=== PATIENT | female | born 1950 | race Two or more races ===

== ENCOUNTER → 2016-10-20 | Outpatient (CLI) | payer OTHER ==
[2016-10-20 10:19] LABS: Basophils # (auto) 0 uL; Basophils % (auto) 0.5 % (0.0-2.0); CONDITION Y; Eosinophils # (auto) 0.1 uL; Eosinophils % (auto) 1.5 % (0.0-7.0); Hematocrit 42.3 % (36.0-46.0); Hemoglobin 14.1 g/dL (12.2-16.2); Lymphocytes # (auto) 1.4 uL; Lymphocytes % (auto) 17.6 % (10.0-50.0); Mean Corpuscular Hemoglobin 29.2 pg (28.0-32.0); Mean Corpuscular Hgb Conc. 33.3 g/dL (32.0-36.0); Mean Corpuscular Volume 87.7 fL (80.0-100.0); Mean Platelet Volume 8.6 fL (7.4-10.4); Monocytes # (auto) 0.4 uL; Monocytes % (auto) 5.4 % (0.0-12.0); Platelet Count (auto) 302 10^3/uL (140-450); Red Cell Distribution Width 15.3 % (11.6-16.0); White Blood Cell 7.9 10^3/uL (4.4-10.8)
[2016-10-20 10:31] LABS: Urine Bilirubin Negative (Negative); Urine Blood Negative /uL (Negative); Urine Color Yellow (Yellow); Urine Glucose Normal (Normal); Urine Ketone Negative (Negative); Urine Mucus FEW (None Seen); Urine Nitrite Negative (Negative); Urine RBC <1 /hpf (0 - 4); Urine Squamous Epithelial Cell FEW /hpf (<5); Urine Urobilinogen Normal (Negative)
[2016-10-20 10:43] LABS: Albumin 3.4 g/dL (3.4-5.0); BUN/Creatinine Ratio 20.8; Bilirubin, Total 0.4 mg/dL (0.2-1.0); Calcium 9.4 mg/dL (8.5-10.1); Potassium 3.7 mmol/L (3.5-5.1); Total Protein 7.8 g/dL (6.4-8.2)
== END | disposition home or self-care (01) ==
LOC: LAB 09:53
PROVIDERS: ATTEND Internal Medicine
DX: I10 Essential (primary) hypertension (principal); E55.9 Vitamin D deficiency, unspecified; E78.2 Mixed hyperlipidemia
CPT/HCPCS: 36415; 80053; 80061; 81001; 82306; 83036; 84443; 85025

== ENCOUNTER → 2017-01-03 | Outpatient (CLI) | payer OTHER | END | disposition home or self-care (01) | LOC: LAB 13:19 | PROVIDERS: ATTEND Internal Medicine | DX: I65.22 Occlusion and stenosis of left carotid artery (principal) | CPT/HCPCS: 36415; 82565; 84520 ==

== ENCOUNTER → 2017-09-08 | Outpatient (CLI) | payer OTHER ==
[2017-09-08 12:55] LABS: Basophils # (auto) 0 uL; Basophils % (auto) 0.5 % (0.0-2.0); Eosinophils # (auto) 0.2 uL; Eosinophils % (auto) 2.4 % (0.0-7.0); Hematocrit 39.8 % (36.0-46.0); Hemoglobin 13.2 g/dL (12.2-16.2); Lymphocytes # (auto) 1.2 uL; Lymphocytes % (auto) 13.8 % (10.0-50.0); Mean Corpuscular Hemoglobin 28.8 pg (28.0-32.0); Mean Corpuscular Hgb Conc. 33.2 g/dL (32.0-36.0); Mean Corpuscular Volume 86.7 fL (80.0-100.0); Monocytes # (auto) 0.5 uL; Monocytes % (auto) 6.2 % (0.0-12.0); Neutrophils # (auto) 6.6 uL; Neutrophils % (auto) 77.1 % (37.0-80.0); Nucleated Red Blood Cells % 0.1 %; Platelet Count (auto) 268 10^3/uL (140-450); Red Blood Cells 4.59 10^6/uL (4.0-5.20); Red Cell Distribution Width 15.4 % (11.8-14.3); White Blood Cell 8.5 10^3/uL (4.4-10.8)
[2017-09-08 13:25] LABS: Albumin 3.2 g/dL (3.4-5.0); BUN/Creatinine Ratio 24.2; Bilirubin, Total 0.4 mg/dL (0.2-1.0); Calcium 8.3 mg/dL (8.5-10.1); Total Protein 7.2 g/dL (6.4-8.2)
== END | disposition home or self-care (01) ==
LOC: LAB 11:54
PROVIDERS: ATTEND Physician Assistant
DX: E78.00 Pure hypercholesterolemia, unspecified (principal); E55.9 Vitamin D deficiency, unspecified; E87.6 Hypokalemia; E78.5 Hyperlipidemia, unspecified; I10 Essential (primary) hypertension; G62.9 Polyneuropathy, unspecified; Z53.20 Procedure and treatment not carried out because of patient's decision for unspecified reasons
CPT/HCPCS: 36415; 80053; 80061; 82306; 82607; 84443; 85025

== ENCOUNTER → 2018-04-13 | Outpatient (CLI) | payer OTHER ==
[~2018-04-13] VITALS: Ht 149.9 cm; Wt 73.5 kg
[~2018-04-13] MED LIST: ADENOSINE 62 MG in GIVE UN-DILUTED 0 ML IV ONE
[2018-04-13 09:34] VITALS: BP 159/94
== END | disposition home or self-care (01) ==
LOC: XY 08:06
PROVIDERS: ATTEND Internal Medicine
DX: I77.1 Stricture of artery (principal); I10 Essential (primary) hypertension
CPT/HCPCS: 78452; 93017; 93925; A9500; J0153

== ENCOUNTER → 2018-05-02 | Outpatient (CLI) | payer OTHER | END | disposition home or self-care (01) | LOC: XY 07:29 | PROVIDERS: ATTEND Internal Medicine | DX: I77.1 Stricture of artery (principal) | CPT/HCPCS: 93926 ==

== ENCOUNTER → 2018-05-03 | Outpatient (CLI) | payer OTHER | END | disposition home or self-care (01) | LOC: XYW 10:23 | PROVIDERS: ATTEND Internal Medicine | DX: I70.0 Atherosclerosis of aorta (principal); I10 Essential (primary) hypertension | CPT/HCPCS: 93306 ==

== ENCOUNTER → 2018-05-04 | Outpatient (CLI) | payer OTHER | END | disposition home or self-care (01) | LOC: XY 07:17 | PROVIDERS: ATTEND Surgery | DX: I65.23 Occlusion and stenosis of bilateral carotid arteries (principal) | CPT/HCPCS: 93886 ==

== ENCOUNTER → 2018-05-22 | Outpatient (CLI) | payer OTHER | END | disposition home or self-care (01) | LOC: LAB 10:20 | PROVIDERS: ATTEND Surgery | DX: I99.8 Other disorder of circulatory system (principal) | CPT/HCPCS: 36415; 82565; 84520 ==

== ENCOUNTER → 2018-05-24 | Outpatient (CLI) | payer OTHER ==
[~2018-05-24] MED LIST changes: -ADENOSINE 62 MG in GIVE UN-DILUTED 0 ML IV ONE; +IOHEXOL 350 MG/ML 100ML IJ ONE
== END | disposition home or self-care (01) ==
LOC: CT 08:54
PROVIDERS: ATTEND Surgery
DX: I77.1 Stricture of artery (principal); I99.8 Other disorder of circulatory system; I73.9 Peripheral vascular disease, unspecified; I77.4 Celiac artery compression syndrome
CPT/HCPCS: 75635; Q9967

== ENCOUNTER → 2018-10-31 | Outpatient (CLI) | payer OTHER ==
[2018-10-31 09:09] LABS: Basophils # (auto) 0 uL; Basophils % (auto) 0.4 % (0.0-2.0); Eosinophils # (auto) 0.2 uL; Eosinophils % (auto) 2.4 % (0.0-7.0); Hematocrit 40.6 % (36.0-46.0); Hemoglobin 13.3 g/dL (12.2-16.2); Lymphocytes # (auto) 0.9 uL; Lymphocytes % (auto) 11.8 % (10.0-50.0); Mean Corpuscular Hemoglobin 27.9 pg (28.0-32.0); Mean Corpuscular Hgb Conc. 32.7 g/dL (32.0-36.0); Mean Corpuscular Volume 85.2 fL (80.0-100.0); Monocytes # (auto) 0.5 uL; Monocytes % (auto) 6.4 % (0.0-12.0); Neutrophils # (auto) 6.1 uL; Platelet Count (auto) 261 10^3/uL (140-450); Red Blood Cells 4.76 10^6/uL (4.0-5.20); Red Cell Distribution Width 17.1 % (11.8-14.3); White Blood Cell 7.7 10^3/uL (4.4-10.8)
[2018-10-31 09:25] LABS: INR 0.97 (0.9-1.15)
[2018-10-31 09:38] LABS: Urine Bacteria FEW /hpf (None Seen); Urine Blood Negative /uL (Negative); Urine Specific Gravity 1.006 (1.001-1.035); Urine WBC 3 /hpf (0 - 5)
[2018-10-31 09:53] LABS: Potassium 3.8 mmol/L (3.5-5.1)
[2018-10-31 10:23] LABS: Albumin 3.5 g/dL (3.4-5.0); BUN/Creatinine Ratio 13.7; Bilirubin, Total 0.6 mg/dL (0.2-1.0); Calcium 8.4 mg/dL (8.5-10.1); Total Protein 7.9 g/dL (6.4-8.2)
== END | disposition home or self-care (01) ==
LOC: LAB 07:29
DX: H25.11 Age-related nuclear cataract, right eye (principal)
CPT/HCPCS: 36415; 80053; 81001; 85025; 85610; 85730

== ENCOUNTER → 2019-11-23 | Outpatient (CLI) | payer OTHER ==
[~2019-11-23] MED LIST changes: +ASPI-543 PO; +ENAL10TA12 PO; -IOHEXOL 350 MG/ML 100ML IJ ONE; +OMEP20TA PO; +POTA10TA51 PO; +SERT-274 PO
[2019-11-23 11:00] LABS: Basophils # (auto) 0 10 ^3/uL (0-0.2); Basophils % (auto) 0.3 % (0.0-2.0); Eosinophils # (auto) 0.1 10 ^3/uL (0-0.8); Eosinophils % (auto) 1.5 % (0.0-7.0); Hematocrit 36.5 % (36.0-46.0); Hemoglobin 11.9 g/dL (12.2-16.2); Lymphocytes % (auto) 13.3 % (10.0-50.0); Mean Corpuscular Hemoglobin 27.3 pg (28.0-32.0); Mean Corpuscular Hgb Conc. 32.7 g/dL (32.0-36.0); Mean Corpuscular Volume 83.4 fL (80.0-100.0); Monocytes # (auto) 0.5 10 ^3/uL (0-1.3); Neutrophils % (auto) 77.9 % (37.0-80.0); Platelet Count (auto) 286 10^3/uL (140-450); Red Blood Cells 4.37 10^6/uL (4.0-5.20); Red Cell Distribution Width 16.4 % (11.8-14.3); White Blood Cell 7.7 10^3/uL (4.4-10.8)
[2019-11-23 11:14] LABS: INR 1.02 (0.9-1.15)
[2019-11-23 11:59] LABS: Albumin 3.3 g/dL (3.4-5.0); Calcium 7.2 mg/dL (8.5-10.1)
[2019-11-23 12:04] LABS: BUN/Creatinine Ratio 15.5; Bilirubin, Total 0.4 mg/dL (0.2-1.0); Total Protein 7.4 g/dL (6.4-8.2)
[2019-11-23 13:25] LABS: Potassium 2.7 mmol/L (3.5-5.1)
== END | disposition home or self-care (01) ==
LOC: LAB 10:25
PROVIDERS: ATTEND Internal Medicine
DX: Z01.812 Encounter for preprocedural laboratory examination (principal)
CPT/HCPCS: 36415; 80053; 85025; 85610; 85730

== ENCOUNTER 2019-11-28 09:05 | Inpatient (IN) | payer OTHER ==
[~2019-11-28] VITALS: Ht 149.9 cm; Wt 68.5 kg
[~2019-11-28 09:05] MED LIST changes: +GABA300C10 PO; +HYDR25TA4 PO; +TIZA4CAP PO
[2019-11-28] MEDS: POTASSIUM CHL 10 Meq TABLET PO SCH ×2 (10:00→21:41)
[2019-11-28 10:07] LABS: BUN/Creatinine Ratio 17.1; Calcium 7.3 mg/dL (8.5-10.1); Potassium 3.3 mmol/L (3.5-5.1)
[2019-11-28] MEDS ORDERED: POTASSIUM CHL 20 Meq TABLET PO ONE (10:45)
[2019-11-28] MEDS ORDERED: LIDOCAINE 2%HCL (LOCAL ANESTH.) INJ 20ML MDV ONE (11:31)
[2019-11-28] MEDS ORDERED: IOHEXOL 350 MG/ML 100ML IJ ONE (11:31)
[2019-11-28] MEDS ORDERED: fentaNYL CITRATE 100 MCG/2 ML VL ONE (11:39)
[2019-11-28] MEDS ORDERED: SODIUM CHL 0.9% 0 ML ONE (11:39)
[2019-11-28] MEDS ORDERED: ANGIOMAX 250 MG VIAL IV ONE (11:39)
[2019-11-28] MEDS ORDERED: MIDAZOLAM HCL 1MG/1ML-2 ML VIAL ONE (11:39)
[2019-11-28] MEDS ORDERED: HEPARIN SODIUM (PORCINE) 5000 UNITS/ML 1ML VIAL ONE (12:06)
[2019-11-28] MEDS ORDERED: VERAPAMIL 2.5MG/ML INJ 2ML VIAL IV ONE (12:06)
[2019-11-28] MEDS ORDERED: NITROGLYCERIN 0.4 MG SL TAB SL PRN (12:45)
[2019-11-28] MEDS ORDERED: ACETAMINOPHEN 500 MG TAB PO PRN (12:45)
[2019-11-28] MEDS: SODIUM CHLORIDE 0.9% 1,000 ML IV SCH (12:45)
[2019-11-28] MEDS ORDERED: ONDANSETRON HCL 4 MG/2 ML VIAL IV PRN (12:45)
[2019-11-28] MEDS ORDERED: MORPHINE SULF INJ 2 MG/ML SYRINGE 1ML IV PRN (12:45)
[2019-11-28 14:15] VITALS: BP 141/80
--- NOTE | 2019-11-28 14:30 | NUR ---
[facility] admit from lab tester FOXPATO admitted to [facility] after SBAR received from lab tester RN. Patient oriented to Kusum Bocanegra RN primary RN, unit, room, bed, and unit policies regarding patient care and visiting hours. Patient weighed by bed scale and encouraged to call if they need something. All questions and concerns addressed, patient verbalized understanding. Noted right arm to be edematous and immobilized with armboard. Patient is sp peripheral angiogram with access site to right brachial. Dressing is C/D/I. Right radial pulse is palpable. No numbness, tingling, or hematoma noted. Bed is low, locked with 2x side rails up. Call light is within reach. Will continue to monitor Q1hr and PRN.
[2019-11-28] MEDS ORDERED: ASPI325T4 PO (15:09)
[2019-11-28] MEDS ORDERED: POTA1TAB61 PO (15:09)
[2019-11-28] MEDS ORDERED: GABA300C10 PO (15:09)
[2019-11-28] MEDS ORDERED: SERT-274 PO (15:09)
[2019-11-28] MEDS ORDERED: ENAL2.5T7 PO (15:09)
[2019-11-28] MEDS ORDERED: OMEP20TA PO (15:09)
--- NOTE | 2019-11-28 15:24 | NUR ---
Right arm is immobilized with arm board. Pt. tolerating well. Addendum: 11/28/19 at 1602 by CELESTE CHAMPION RN RN Amended: Links added.
[2019-11-28 16:27] VITALS: BP 164/96
--- NOTE | 2019-11-28 17:30 | NUR ---
Removed armboard to right arm No bleeding noted. Dressing is C/D/I. Right radial pulse palpable. No hematoma, tingling or numbness noted/expressed. Will continue to monitor Q1hr and PRN.
--- NOTE | 2019-11-28 19:30 | NUR ---
Opening Shift Note Assumed care of patient, awake and alert. No S/S of distress/SOB or pain. Instructed on POC and to call for assist PRN, will continue to monitor for changes Q1hr and PRN.
[2019-11-28 21:00] VITALS: BP 156/98
[2019-11-28] MEDS: GABAPENTIN 300 MG CAP PO SCH (21:41)
[2019-11-28] MEDS: ENALAPRIL MALEATE 10 MG TAB PO SCH (21:42)
[2019-11-29 05:00] VITALS: BP_SYST 158; BP_SYST 5; BP_DIAS 96
[2019-11-29] MEDS: HYDROcodone-ACET 5/325MG TAB PO PRN ×2 (06:00→11:37)
[2019-11-29 06:30] LABS: Basophils # (auto) 0 10 ^3/uL (0-0.2); Basophils % (auto) 0.3 % (0.0-2.0); Eosinophils # (auto) 0.1 10 ^3/uL (0-0.8); Mean Corpuscular Hemoglobin 26.3 pg (28.0-32.0); Monocytes # (auto) 0.6 10 ^3/uL (0-1.3)
[2019-11-29 06:32] LABS: Eosinophils % (auto) 0.7 % (0.0-7.0); Hematocrit 40.7 % (36.0-46.0); Hemoglobin 12.8 g/dL (12.2-16.2); Lymphocytes % (auto) 8.6 % (10.0-50.0); Mean Corpuscular Hgb Conc. 31.4 g/dL (32.0-36.0); Mean Corpuscular Volume 83.8 fL (80.0-100.0); Monocytes % (auto) 5.5 % (0.0-12.0); Neutrophils # (auto) 9.4 10 ^3/uL (1.6-8.6); Neutrophils % (auto) 84.9 % (37.0-80.0); Platelet Count (auto) 293 10^3/uL (140-450); Red Blood Cells 4.85 10^6/uL (4.0-5.20); Red Cell Distribution Width 16.4 % (11.8-14.3); White Blood Cell 11.1 10^3/uL (4.4-10.8)
[2019-11-29 06:36] LABS: INR 1.06 (0.9-1.15); Partial Thromboplastin Time 27.1 sec (23.0-31.2)
[2019-11-29 07:02] LABS: Albumin 3.3 g/dL (3.4-5.0); BUN/Creatinine Ratio 22.4; Calcium 7.7 mg/dL (8.5-10.1)
[2019-11-29 07:05] LABS: Bilirubin, Total 0.6 mg/dL (0.2-1.0); Total Protein 7.7 g/dL (6.4-8.2)
--- NOTE | 2019-11-29 07:28 | NUR ---
endorsed care to day RN. no distress at this time
[2019-11-29 07:37] LABS: Potassium 2.7 mmol/L (3.5-5.1)
[2019-11-29 08:33] LABS: Cholesterol 227 mg/dL (< 200); HDL Cholesterol 67 mg/dL (40-59); LDL Cholesterol 157 mg/dL (< 100); Triglycerides 113 mg/dL (< 150)
[2019-11-29] MEDS: SODIUM CHLORIDE 0.9% 1,000 ML IV SCH (08:45)
[2019-11-29 09:07] VITALS: BP 163/105
[2019-11-29] MEDS ORDERED: POTASSIUM CHL 20 Meq TABLET PO ONE ×3 (10:00→16:15)
[2019-11-29] MEDS ORDERED: SERTRALINE HCL 50 MG TAB PO SCH (10:00)
[2019-11-29] MEDS ORDERED: PANTOPRAZOLE 40 MG TAB PO SCH (10:00)
[2019-11-29] MEDS ORDERED: ASPirin-EC 81 mg tab PO SCH (10:00)
[2019-11-29] MEDS ORDERED: HCTZ 25 MG TAB PO SCH (10:00)
[2019-11-29] MEDS: GABAPENTIN 300 MG CAP PO SCH (11:36)
[2019-11-29] MEDS: ENALAPRIL MALEATE 10 MG TAB PO SCH (11:38)
[2019-11-29] MEDS: POTASSIUM CHL 10 Meq TABLET PO SCH (11:39)
[2019-11-29 12:45] VITALS: BP 136/83
--- NOTE | 2019-11-29 16:09 | NUR ---
David Spoke to Dr. Langston regarding patient's redraw of potassium. New orders given. Patient will be given potassium and then discharged according to doctor's orders.
--- NOTE | 2019-11-29 16:45 | NUR ---
Surgical Consult Patient instructed to follow up with Dr. Young to get a referral for surgery with Dr. Lee. Dr. Lee has already seen and spoke with patient regarding surgery sometime next week.
--- NOTE | 2019-11-29 17:01 | NUR ---
Discharge Discharge instructions given as ordered. Encourage to follow up with PMD as instructed. All questions and concerns addressed. Patient verbalized understanding. Medication reconciliation form completed and copy given to patient. IV removed with catheter intact, pressure dressing applied. Patient taken to vehicle via wheelchair with all personal belongings, accompanied by staff. No distress noted at time of departure.
[2019-11-29 17:15] VITALS: BP 127/83
== END 2019-11-29 17:00 | disposition home or self-care (01) | DRG 301 ==
LOC: CATH 09:05 → TELE-CENTR 14:18 → CENTRAL 14:36
PROVIDERS: ADMIT Internal Medicine; ATTEND Internal Medicine
PROC: B41D1ZZ Fluoroscopy of Aorta and Bilateral Lower Extremity Arteries using Low Osmolar Contrast (ICD-10-PCS; principal; 2019-11-28)
DX: I73.9 Peripheral vascular disease, unspecified (principal); E87.6 Hypokalemia; I10 Essential (primary) hypertension; I70.0 Atherosclerosis of aorta; F17.210 Nicotine dependence, cigarettes, uncomplicated; F32.9 Major depressive disorder, single episode, unspecified; Z88.0 Allergy status to penicillin; Z79.82 Long term (current) use of aspirin; Z79.899 Other long term (current) drug therapy; Z85.41 Personal history of malignant neoplasm of cervix uteri; Z92.3 Personal history of irradiation
CPT/HCPCS: 36415; 75625; 75716; 80048; 80053; 80061; 84132; 85025; 85610; 85730; 99152; 99153; G0378; J2250

== ENCOUNTER 2019-12-24 03:20 | Inpatient (IN) | payer OTHER ==
[~2019-12-24] VITALS: Ht 149.9 cm; Wt 70.3 kg
[~2019-12-24 03:20] MED LIST changes: -ASPI-543 PO; +ASPI325T4 PO
[2019-12-24 03:30] VITALS: BP 118/69
[2019-12-24 04:03] LABS: Basophils # (auto) 0 10 ^3/uL (0-0.2); Basophils % (auto) 0.2 % (0.0-2.0); Eosinophils # (auto) 0.3 10 ^3/uL (0-0.8); Eosinophils % (auto) 2.9 % (0.0-7.0); Hematocrit 31.3 % (36.0-46.0); Hemoglobin 10.5 g/dL (12.2-16.2); Lymphocytes # (auto) 1.7 10 ^3/uL (0.4-5.4); Lymphocytes % (auto) 19.4 % (10.0-50.0); Mean Corpuscular Hemoglobin 28.5 pg (28.0-32.0); Mean Corpuscular Hgb Conc. 33.5 g/dL (32.0-36.0); Monocytes # (auto) 0.6 10 ^3/uL (0-1.3); Neutrophils # (auto) 6.1 10 ^3/uL (1.6-8.6); Neutrophils % (auto) 70.5 % (37.0-80.0); Nucleated Red Blood Cells % 0.1 %; Platelet Count (auto) 211 10^3/uL (140-450); Red Blood Cells 3.68 10^6/uL (4.0-5.20); Red Cell Distribution Width 16.7 % (11.8-14.3); White Blood Cell 8.7 10^3/uL (4.4-10.8)
[2019-12-24 04:21] LABS: INR 1.1 (0.9-1.15); Partial Thromboplastin Time 26.8 sec (23.0-31.2)
[2019-12-24 04:54] LABS: Albumin 2.9 g/dL (3.4-5.0); Calcium 6.1 mg/dL (8.5-10.1); Potassium 3.3 mmol/L (3.5-5.1)
[2019-12-24 04:59] LABS: BUN/Creatinine Ratio 18.7; Bilirubin, Total 0.3 mg/dL (0.2-1.0); Total Protein 6.1 g/dL (6.4-8.2)
[2019-12-24 05:07] VITALS: BP 118/69
[2019-12-24 05:30] VITALS: BP 148/66
[2019-12-24] MEDS ORDERED: ATOR40TA52 PO ×2 (06:48→06:53)
[2019-12-24] MEDS ORDERED: POTA1TAB61 PO (06:48)
[2019-12-24] MEDS ORDERED: ASPI325T4 PO (06:48)
[2019-12-24] MEDS ORDERED: QUET50TA PO (06:48)
[2019-12-24] MEDS ORDERED: GABA300C10 PO ×2 (06:48→06:50)
[2019-12-24] MEDS ORDERED: HCTZ25T PO (06:48)
[2019-12-24] MEDS ORDERED: IBUP800T24 PO ×2 (06:48→06:53)
[2019-12-24] MEDS ORDERED: OMEP20TA PO (06:48)
[2019-12-24] MEDS ORDERED: TRAM50TA2 PO ×2 (06:48→06:53)
[2019-12-24] MEDS ORDERED: ENAL2.5T7 PO (06:48)
[2019-12-24] MEDS ORDERED: TIZA4CAP PO (06:48)
[2019-12-24] MEDS ORDERED: ONDANSETRON HCL 4 MG/2 ML VIAL IV PRN (07:00)
[2019-12-24] MEDS ORDERED: POTASSIUM CHL 20 Meq TABLET PO ONE (07:00)
[2019-12-24] MEDS ORDERED: TEMAZEPAM 15 MG CAP PO PRN (07:00)
[2019-12-24] MEDS ORDERED: ACETAMINOPHEN 325 MG TAB PO PRN (07:00)
[2019-12-24 09:00] VITALS: BP 131/82
[2019-12-24] MEDS ORDERED: ENOXAPARIN SOD 40 MG/0.4 ML SYRINGE SC SCH (10:00)
[2019-12-24] MEDS ORDERED: ENALAPRIL MALEATE 10 MG TAB PO SCH (10:00)
[2019-12-24] MEDS ORDERED: FAMOTIDINE 20 MG TAB PO SCH (10:00)
[2019-12-24] MEDS ORDERED: ASPirin 81 mg TAB PO SCH (10:00)
[2019-12-24] MEDS ORDERED: HCTZ 25 MG TAB PO SCH (10:00)
[2019-12-24 13:00] VITALS: BP 128/59
[2019-12-24 15:14] LABS: % Iron Saturation 9.9 % (15-50)
[2019-12-24 17:00] VITALS: BP 132/78
[2019-12-24] MEDS ORDERED: ATORVASTATIN 20 MG TAB PO SCH (22:00)
== END 2019-12-24 19:30 | disposition left against medical advice (07) | DRG 69 ==
LOC: WEST WING 03:20
PROVIDERS: ADMIT Nurse Practitioner; ATTEND Internal Medicine
DX: G45.9 Transient cerebral ischemic attack, unspecified (principal); E87.6 Hypokalemia; E78.5 Hyperlipidemia, unspecified; I10 Essential (primary) hypertension; D64.9 Anemia, unspecified; Z53.29 Procedure and treatment not carried out because of patient's decision for other reasons; I73.9 Peripheral vascular disease, unspecified; Z82.49 Family history of ischemic heart disease and other diseases of the circulatory system; Z72.0 Tobacco use; F41.9 Anxiety disorder, unspecified; F32.9 Major depressive disorder, single episode, unspecified; R47.81 Slurred speech; Z88.0 Allergy status to penicillin
CPT/HCPCS: 36415; 70551; 80053; 83540; 83550; 83880; 84484; 85025; 85610; 85730; 87081; 93886; G0378